=== PATIENT | male | born 1950 | race Caucasian/White ===

== ENCOUNTER → 2023-04-05 11:23 | Outpatient (REF) | payer MEDICARE, OTHER, SELFPAY ==
[2023-04-05 12:11] LABS: % Basophils 0.7 % (0-2); % Eosinophils 3.8 % (0-6); % Immature Granulocytes 0.1 % (0-0.5); % Monocytes 7.5 % (1.7-9.3); % Neutrophils 56.9 % (42.2-75.2); Absolute Basophils 0.1 10^3/uL (0-0.2); Absolute Eosinophils 0.3 10^3/uL (0-0.7); Absolute Lymphocytes 2.2 10^3/uL (1.2-3.4); Absolute Monocytes 0.5 10^3/uL (0.1-0.6); Hematocrit 39.2 % (39.0-52.0); Hemoglobin 13.6 g/dL (13.0-18.0); Mean Corp Hgb Conc. 34.7 g/dL (33.0-37.0); Mean Corpuscular Hgb 32.9 pg (27.0-31.0); Mean Corpuscular Volume 94.7 fL (80.0-94.0); Mean Platelet Volume 10.1 fL (7.4-10.4); Nucleated Red Blood Cells % 0 % (-); Platelet Count 128 10^3/uL (130-400); Red Blood Cell Count 4.14 10^6/uL (4.70-6.10); Red Cell Dist. Width 13.9 % (11.5-14.5); White Blood Cell Count 7.1 10^3/uL (4.8-10.8)
[2023-04-05 12:20] LABS: INR 1.06; PT 13.6 Sec (11.4-14.6)
[2023-04-05 13:05] LABS: Blood Urea Nitrogen 23 mg/dl (9-20); Calcium 9.1 mg/dl (8.4-10.2); Carbon Dioxide 28 mmol/L (22-30); Chloride 101 mmol/L (98-107); Glucose 112 mg/dl (70-99); Potassium 4.3 mmol/L (3.5-5.1); Sodium 137 mmol/L (135-145); eGFR > 60.00
== END ==
LOC: REG 11:23
PROVIDERS: ATTENDING PHYSICIAN Surgery; FAMILY PHYSICIAN Internal Medicine
DX: I70.212 Atherosclerosis of native arteries of extremities with intermittent claudication, left leg (principal)
CPT/HCPCS: 36415; 80048; 85025; 85610

== ENCOUNTER → 2023-05-02 06:29 | Day surgery (SDC) | payer MEDICARE, OTHER, SELFPAY | LOC: GI 06:29 | PROVIDERS: ATTENDING PHYSICIAN Specialist | DX: K52.9 Noninfective gastroenteritis and colitis, unspecified (principal); K64.8 Other hemorrhoids; K63.89 Other specified diseases of intestine; K52.831 Collagenous colitis | CPT/HCPCS: 45380; 88305; 88313 ==

== ENCOUNTER 2023-05-10 11:30 | Emergency (ER) | payer MEDICARE, OTHER, SELFPAY ==
[2023-05-10 11:35] VITALS: BP 133/68
--- NOTE | 2023-05-10 12:22 | ED.GENMED ---
History of Present Illness
General
Chief Complaint: DVT/Possible Blood Clot
Time Seen by Provider: 05/10/23 11:41
Travel History
Have you had any contact with someone who has COVID-19?: No
Do you have any symptoms of coronavirus? Fever > 100 degrees, chills, cough, shortness of breath, sore throat, loss of taste or smell, muscle aches, or headache?: No
History of Present Illness
History of Present Illness:
72-year-old male with history of prior PE provoked by knee surgery, coronary artery disease, and peripheral arterial disease presents to the emergency department for evaluation of pain to the right popliteal region beginning yesterday. States it is
similar to symptoms that he had from prior DVT. He denies any claudication type symptoms. Denies any numbness or paresthesias in the right lower extremity. Pain is minimal at rest currently. Does note that he has right knee arthritis and is
following with orthopedics for a potential future knee replacement.
Past History
Past History
ED Past Medical History: CAD, HTN and Other (DVT, PE)
ED Past Surgical History: Orthopedic (prior cervical fusion)
Social History
Tobacco: Non-smoker
Alcohol: Occasional
Personal:
Living: with family
Employment: Other
Family History
Family History: Negative Diabetes, Hypertension or CAD
Review of Systems
Review of Systems
Allergies reviewed?: Yes
All Other Systems: ROS reviewed and negative except as documented in HPI and ROS
Phy Exam
Physical Exam
Physical Exam:
GEN: Well appearing, NAD, WDWN
HEENT: Oral mucosa moist, no scleral icterus
Cardiac: Regular rate and rhythm, no murmurs
Lung: No respiratory distress, no tachypnea
MSK: No gross deformity or injuries. 2+ dorsalis pedis pulse, 1+ pulses throughout. On the right, normal sensation to all digits
Skin: Good color, no pallor or jaundice, no rashes
Neuro: AO x3, moves all extremities freely
Psych: Calm, cooperative
Course
Orders/Labs/Results
Orders:
Orders
05/10/23 11:53
Venous Doppler Lwr Ext Rt [US Periph Venous LOWER Ext RT] Urgent
Comment:
Reason For Exam: R leg swelling/pain
Vital Signs
Initial and Last Documented VS:
Initial Vital Signs
Temp Pulse Resp BP Pulse Ox
97.5 F 56 16 133/68 99
05/10/23 11:35 05/10/23 11:35 05/10/23 11:35 05/10/23 11:35 05/10/23 11:35
Last Documented Vital Signs
Temp Pulse Resp BP Pulse Ox
97.5 F 70 16 136/75 98
05/10/23 11:35 05/10/23 14:55 05/10/23 14:55 05/10/23 14:55 05/10/23 14:55
MDM/Problems Addressed
MDM/Problems Addressed:
Patient clinical signs of arterial disease/arterial insufficiency at this time as he has no claudication and has intact peripheral pulses. DVT ultrasound shows no evidence for clot. This pain is likely due to his right knee arthritis
*Critical Care Note
Total Time (30-74mins, 75-104mins- exclusive of procedures): Not Applicable
ED Attending Note
-
Portions of this chart may have been created with voice recognition software.� Occasional wrong word or��sound alike� substitutions may have occurred due to the inherent limitations of voice recognition software.
Discharge Plan
Departure
Patient Disposition: Home (Routine Discharge)
Date of Disposition: 05/10/23
Time of Disposition: 14:45
Patient with high blood pressure during this ER visit?: No
Discharge Problem:
Posterior right knee pain
Instructions: Knee Pain ED
Prescriptions:
No Action
atorvastatin 80 MG tablet
80 mg PO HS
atenolol 50 MG tablet
50 mg PO DAILY
tramadol 50 MG tablet
50 mg PO Q4H PRN (Reason: pain)
Centrum Silver Men 1 EACH tablet
1 ea PO DAILY
aspirin 81 MG tablet,delayed release (DR/EC)
81 mg PO Q48H
coenzyme Q10 [Co Q-10] 100 MG capsule
100 mg PO DAILY
docosahexaenoic acid-epa 1 CAP capsule
1 cap PO DAILY
isosorbide mononitrate 30 MG tablet extended release 24 hr
30 mg PO HS
Referrals:
Larry Almonte MD [Family Provider] -
Activity Restrictions/Additional Instructions:
You have good pulses to the R foot and no signs of arterial blood flow problems
Your DVT study looks normal
Interventions
Interventions:
*Risk Screen - Suicide Last Done: 05/10/23 14:16
*General Assessment Last Done: 05/10/23 11:35
*Neglect/Abuse Screening Last Done: 05/10/23 14:16
ED- Fall Risk Assessment Last Done: 05/10/23 14:55
*ED COVID-19 Vaccine History Last Done: 05/10/23 11:35
*Nursing Disposition Last Done: 05/10/23 14:55
ED- Cardiac Assessment Last Done: 05/10/23 14:09
ED- Pulmonary Assessment Last Done: 05/10/23 14:09
ED-Peripheral Vascular Assessment Last Done: 05/10/23 14:09
ED-Skin Assessment Last Done: 05/10/23 14:09
Discharge Date and Time
Discharge Date/Time: 05/10/23 14:56
[2023-05-10 14:55] VITALS: BP 136/75
== END 2023-05-10 14:56 | disposition home or self-care (01) ==
LOC: EMR 11:30
PROVIDERS: EMERGENCY PHYSICIAN Emergency Medicine; FAMILY PHYSICIAN Internal Medicine
DX: M25.561 Pain in right knee (principal); M17.11 Unilateral primary osteoarthritis, right knee
CPT/HCPCS: 99284; 93971

== ENCOUNTER → 2023-07-19 10:00 | Outpatient (REF) | payer MEDICARE, OTHER, SELFPAY ==
[2023-07-19 11:54] LABS: ALT (SGPT) 35 U/L (0-50); AST (SGOT) 36 U/L (17-59); Albumin 4.2 g/dl (3.5-5.0); Alkaline Phosphatase 83 U/L (38-126); Direct Bilirubin 0.4 mg/dl (0.0-0.4); HDL Cholesterol 61 mg/dl; LDL Cholesterol, Calculated 69 mg/dl; Total Cholesterol 147 mg/dl (50-199); Total Protein 6.9 g/dl (6.3-8.2); Triglyceride 86 mg/dl (10-149); Very Low Density Lipoprotein 17 mg/dl (0-30)
== END ==
LOC: REG 10:00
PROVIDERS: ATTENDING PHYSICIAN Internal Medicine
DX: E78.5 Hyperlipidemia, unspecified (principal); E66.9 Obesity, unspecified
CPT/HCPCS: 36415; 80061; 80076

== ENCOUNTER → 2023-12-09 11:02 | Outpatient (REF) | payer MEDICARE, OTHER, SELFPAY | LOC: REG 11:02 | PROVIDERS: ATTENDING PHYSICIAN Specialist; FAMILY PHYSICIAN Internal Medicine | DX: R19.7 Diarrhea, unspecified (principal) | CPT/HCPCS: 87045; 87046; 87324; 87427; 87449 ==

== ENCOUNTER → 2023-12-17 08:56 | Outpatient (REF) | payer MEDICARE, OTHER, SELFPAY ==
[2023-12-17 10:44] LABS: % Basophils 0.6 % (0-2); % Eosinophils 2.2 % (0-6); % Immature Granulocytes 0.3 % (0-0.5); % Lymphocytes 31.1 % (20.5-51.1); % Monocytes 7.8 % (1.7-9.3); Absolute Eosinophils 0.1 10^3/uL (0-0.7); Absolute Monocytes 0.5 10^3/uL (0.1-0.6); Absolute Neutrophils 3.7 10^3/uL (1.4-6.5); Hematocrit 37.1 % (39.0-52.0); Hemoglobin 12.6 g/dL (13.0-18.0); Mean Corpuscular Volume 94.2 fL (80.0-94.0); Mean Platelet Volume 10.4 fL (7.4-10.4); Nucleated Red Blood Cells % 0 % (-); Platelet Count 120 10^3/uL (130-400); Red Blood Cell Count 3.94 10^6/uL (4.70-6.10); Red Cell Dist. Width 14.9 % (11.5-14.5); White Blood Cell Count 6.3 10^3/uL (4.8-10.8)
[2023-12-17 10:53] LABS: ALT (SGPT) 49 U/L (0-50); AST (SGOT) 41 U/L (17-59); Albumin 4.1 g/dl (3.5-5.0); Alkaline Phosphatase 60 U/L (38-126); Blood Urea Nitrogen 28 mg/dl (9-20); Calcium 9.3 mg/dl (8.4-10.2); Carbon Dioxide 30 mmol/L (22-30); Chloride 100 mmol/L (98-107); Glucose 85 mg/dl (70-99); HDL Cholesterol 53 mg/dl; LDL Cholesterol, Calculated 72 mg/dl; Potassium 4.6 mmol/L (3.5-5.1); Sodium 141 mmol/L (135-145); Total Bilirubin 0.8 mg/dl (0.2-1.3); Total Cholesterol 139 mg/dl (50-199); Total Protein 6.5 g/dl (6.3-8.2); Triglyceride 70 mg/dl (10-149); Very Low Density Lipoprotein 14 mg/dl (0-30); eGFR > 60.00
[2023-12-17 11:18] LABS: PSA, Total - Screen 0.95 ng/ml (0.0-4.0)
[2023-12-18 14:45] LABS: Iron 84 ug/dl (49-181)
[2023-12-18 14:54] LABS: Percent Saturation 28 % (20-50); Total Iron Binding Capacity 297 ug/dl (261-462)
== END ==
LOC: REG 08:56
PROVIDERS: ATTENDING PHYSICIAN Internal Medicine
DX: E78.5 Hyperlipidemia, unspecified (principal); Z00.01 Encounter for general adult medical examination with abnormal findings; Z12.5 Encounter for screening for malignant neoplasm of prostate; D50.9 Iron deficiency anemia, unspecified
CPT/HCPCS: 36415; 80053; 80061; 83540; 83550; 85025; G0103

== ENCOUNTER → 2024-02-23 13:57 | Outpatient (REF) | payer MEDICARE, OTHER, SELFPAY | LOC: RAD 13:57 | PROVIDERS: ATTENDING PHYSICIAN Internal Medicine | DX: I73.9 Peripheral vascular disease, unspecified (principal) | CPT/HCPCS: 93922; 93925 ==

== ENCOUNTER → 2024-06-12 09:33 | Outpatient (REF) | payer MEDICARE, OTHER, SELFPAY ==
[2024-06-12 11:19] LABS: % Basophils 0.6 % (0-2); % Immature Granulocytes 0.2 % (0-0.5); % Lymphocytes 38.7 % (20.5-51.1); % Monocytes 7.8 % (1.7-9.3); % Neutrophils 49.7 % (42.2-75.2); Absolute Eosinophils 0.2 10^3/uL (0-0.7); Absolute Lymphocytes 2.4 10^3/uL (1.2-3.4); Absolute Monocytes 0.5 10^3/uL (0.1-0.6); Absolute Neutrophils 3.1 10^3/uL (1.4-6.5); Hematocrit 38.7 % (39.0-52.0); Hemoglobin 13.4 g/dL (13.0-18.0); Mean Corp Hgb Conc. 34.6 g/dL (33.0-37.0); Mean Corpuscular Hgb 33.5 pg (27.0-31.0); Mean Corpuscular Volume 96.8 fL (80.0-94.0); Mean Platelet Volume 10.9 fL (7.4-10.4); Nucleated Red Blood Cells % 0 % (-); Platelet Count 108 10^3/uL (130-400); Red Cell Dist. Width 14.6 % (11.5-14.5); White Blood Cell Count 6.3 10^3/uL (4.8-10.8)
[2024-06-12 11:55] LABS: ALT (SGPT) 52 U/L (0-50); AST (SGOT) 41 U/L (17-59); Albumin 4.4 g/dl (3.5-5.0); Alkaline Phosphatase 64 U/L (38-126); Direct Bilirubin 0.4 mg/dl (0.0-0.4); HDL Cholesterol 54 mg/dl; Iron 122 ug/dl (49-181); LDL Cholesterol, Calculated 56 mg/dl; Total Bilirubin 1.2 mg/dl (0.2-1.3); Total Cholesterol 131 mg/dl (50-199); Total Protein 6.7 g/dl (6.3-8.2); Triglyceride 106 mg/dl (10-149); Very Low Density Lipoprotein 21 mg/dl (0-30)
[2024-06-12 12:05] LABS: Percent Saturation 42 % (20-50); Total Iron Binding Capacity 287 ug/dl (261-462)
== END ==
LOC: REG 09:33
PROVIDERS: ATTENDING PHYSICIAN Internal Medicine
DX: D50.9 Iron deficiency anemia, unspecified (principal); D64.9 Anemia, unspecified; E78.5 Hyperlipidemia, unspecified; Z68.30 Body mass index [BMI] 30.0-30.9, adult
CPT/HCPCS: 36415; 80061; 80076; 83540; 83550; 85025

== ENCOUNTER → 2024-09-01 14:20 | Outpatient (REF) | payer MEDICARE, OTHER, SELFPAY | LOC: DHVS 14:20 | PROVIDERS: ATTENDING PHYSICIAN Surgery Vascular Surgery; FAMILY PHYSICIAN Internal Medicine | DX: I73.9 Peripheral vascular disease, unspecified (principal); I25.10 Atherosclerotic heart disease of native coronary artery without angina pectoris | CPT/HCPCS: 93880; 93922; 93925 ==

== ENCOUNTER → 2024-09-13 14:01 | Outpatient (REF) | payer MEDICARE, OTHER, SELFPAY ==
[2024-09-13 14:51] LABS: Blood Urea Nitrogen 26 mg/dl (9-20); Calcium 9.4 mg/dl (8.4-10.2); Carbon Dioxide 30 mmol/L (22-30); Chloride 103 mmol/L (98-107); Glucose 93 mg/dl (70-99); Potassium 4.8 mmol/L (3.5-5.1); Sodium 137 mmol/L (135-145); eGFR > 60.00
== END ==
LOC: REG 14:01
PROVIDERS: ATTENDING PHYSICIAN Surgery Vascular Surgery; FAMILY PHYSICIAN Internal Medicine
DX: I65.21 Occlusion and stenosis of right carotid artery (principal)
CPT/HCPCS: 36415; 80048

== ENCOUNTER → 2024-09-14 14:02 | Outpatient (REF) | payer MEDICARE, OTHER, SELFPAY | LOC: RAD 14:02 | PROVIDERS: ATTENDING PHYSICIAN Physician Assistant | DX: I65.21 Occlusion and stenosis of right carotid artery (principal) | CPT/HCPCS: 70496; 70498; Q9967 ==

== ENCOUNTER 2024-09-28 08:23 | Inpatient (IN) | payer MEDICARE, OTHER, SELFPAY ==
[2024-09-24 09:32] VITALS: BMI 29.1
[2024-09-24 10:16] LABS: Hematocrit 39.3 % (39.0-52.0); Hemoglobin 13.5 g/dL (13.0-18.0); Mean Corp Hgb Conc. 34.4 g/dL (33.0-37.0); Mean Corpuscular Volume 99.2 fL (80.0-94.0); Nucleated Red Blood Cells % 0 % (-); Platelet Count 106 10^3/uL (130-400); Red Cell Dist. Width 14.4 % (11.5-14.5)
[2024-09-24 10:30] LABS: INR 0.99; PT 13.4 Sec (11.4-14.6)
[2024-09-24 10:32] LABS: APTT 26.4 Sec (23.4-35.0)
[2024-09-24 10:48] LABS: Blood Urea Nitrogen 24 mg/dl (9-20); Calcium 9.0 mg/dl (8.4-10.2); Carbon Dioxide 30 mmol/L (22-30); Chloride 104 mmol/L (98-107); Estimated Creatinine Clearance 57 ml/min; Glucose 85 mg/dl (70-99); Potassium 4.4 mmol/L (3.5-5.1); Sodium 141 mmol/L (135-145); eGFR > 60.00
[2024-09-28] VITALS (10 sets, daily range): BP systolic 100–161; BP diastolic 57–86
[2024-09-28] MEDS: BACTROBAN NASAL 1 GRAM NASAL (08:51)
[2024-09-28] MEDS: PERIDEX 0.12% ORAL RINSE 15 ML PO (08:51)
[2024-09-28] MEDS: NSS 500 IV (08:52)
--- NOTE | 2024-09-28 10:17 | W.SUR.PREOP ---
Pre-Operative Surgical Note
-
I have examined this patient prior to the performance of the scheduled procedure.
The patient's condition is unchanged from the time of the current History and
Physical and the patient is able to undergo the scheduled procedure.
[2024-09-28 12:30] LABS: ACT-LR - POC 298 Seconds (116-155)
[2024-09-28 13:09] LABS: ACT-LR - POC 305 Seconds (116-155)
--- NOTE | 2024-09-28 13:24 | OR.RPT ---
Operative Report
Operative Report
Date of Operation: 09/28/2024
Pre Op Diagnosis: High-grade stenosis of right carotid artery, asymptomatic
Post Op Diagnosis: High-grade stenosis of right carotid artery, asymptomatic
Procedure: RIGHT carotid endarterectomy with patch angioplasty using bovine pericardium
Surgeon: Jus Gilliland III, MD
Manager Product Management: Maurice Simon MD PGY2
Anesthesia: General
Complications: None
History and Indications for Procedure: 74-year-old male with high-grade stenosis of the right carotid artery.
Procedure in Detail: Eitan Flores was correctly identified and placed supine on the operating table. After adequate induction of anesthesia the right neck was positioned, prepped and draped in the usual sterile fashion. Preoperative antibiotics
were administered. A timeout procedure was performed with the nursing and anesthesia staff confirming the patients identity as well as the nature and laterality of the procedure.
The carotid bifurcation was marked with ultrasound at the beginning of the case. The incision was planned accordingly. An incision was made along the anterior border of the right sternocleidomastoid muscle. Electrocautery was used to divide the
subcutaneous tissue and platysma. The carotid sheath was entered with sharp dissection. The internal jugular vein was retracted laterally. The vagus nerve was identified and protected throughout the case. The common carotid artery was identified at
the base of this incision and carefully encircled with a vessel loop. The patient was systemically heparinized. The dissection was continued distally towards the carotid bifurcation. The facial vein was skeletonized, ligated and divided between ties
and clips. The proximal external carotid artery was encircled with a vessel loop. The distal internal carotid artery was encircled with a vessel loop at a soft spot on the artery beyond the plaque. The hypoglossal nerve was identified and protected.
The internal vessel loop was secured followed by the common and external. An arteriotomy was made on the distal common carotid artery with an 11-blade. This was extended proximally and distally with Ol[place] scissors. The arteriotomy was extended
distally through the plaque to an area of normal appearing internal carotid artery. The distal vessel loop was replaced with a short tip hockey-stick type vascular clamp. An endarterectomy was performed with a [place] elevator in the standard
fashion. The proximal extent of the plaque was transected with scissors. The distal end of the plaque in the internal carotid artery was feathered. No distal intimal flap was identified. The plaque extending into the external carotid artery was
everted. Once the plaque was fully removed the endarterectomy plane was irrigated with heparinized saline and any loose fronds of tissue were removed. A pre-cut piece of bovine pericardium was sewn in place using a running 6-0 Prolene suture. Prior
to the completion of the patch the common carotid was allowed to forward bleed and the external was allowed to back bleed. The area under the patch was irrigated with heparinized saline to remove any potential thrombus or debris. The anastomosis was
completed.
The external vessel loop was released first, followed by the common and then the internal. There was an excellent pulse in the distal internal carotid artery. An excellent quality Doppler signal in the distal internal carotid artery was also
confirmed. The patch suture line was closely inspected for hemostasis and was achieved. Protamine was administered. Hemostasis was achieved in the wound bed. The wound was irrigated with saline solution.
The wound was then closed in layers. Sterile skin glue was applied. The patient awoke from anesthesia with no immediate neuro deficits and was taken to the PACU in stable condition.
Attestation: I was present and responsible for the entire procedure
Signed:
Jus Gilliland III, MD
Vascular Surgery
[facility]
[2024-09-28] MEDS: MORPHINE SULFATE 2 MG IV ×2 (14:04→14:22)
--- NOTE | 2024-09-28 15:15 | PTCARENOTE ---
Pt rec'd into ICU 3368 from PACU at approx 15:15, AOx3 pleasant and cooperative, right neck surgical site assessed, neurovascular checks WNL, see flowsheet. Right radial Stanton intact, leveled and zeroed, correlating with non invasive cuff. 2L nasal
cannula applied, sat 94%. Pt with known hx of sleep apnea, not technically diagnosed and pt refuses any treatment/intervention due to claustrophobia r/t mask per . Pt oriented to room and plan of care, updated as well. Pt ordering dinner,
using ice pack to right neck per order, medicated with PRN Tramadol 100 mg for 7/10 pain as ordered with good result. Safe environment maintained, care ongoing. Call spain in hand.
[2024-09-28 15:20] LABS: Glucose - Point of Care 74 mg/dl (70-99)
--- NOTE | 2024-09-28 15:36 | CON.INTV ---
Consultation
Consultation Request
Date/Time Consultation Requested: 09/28/2024
Date/Time Consultation Performed: 09/28/2024
Requesting Provider: Dr. Gilliland
Performing Provider: Dr. Cuauhtemoc Maza
Reason for Consultation: Status post right carotid endarterectomy
Medical History
-
Chief Complaint: Status post carotid endarterectomy
History of Present Illness:
74-year-old man with past medical history significant for hyperlipidemia, GERD, prior peptic ulcer disease, hypogonadism, DVT in 2012, pulmonary embolism 2012, cervical spinal stenosis, coronary artery disease who has history of carotic artery
stenosis. Admitted electively for revascularization.
Underwent right carotid endarterectomy by Dr. Gilliland on 09/28/2024. Transferred to the critical care unit for postoperative care.
Currently denies any headache or blurry vision.
His incision is intact without hematoma.
No stridor on exam.
Past Medical History
Past Medical History: Other (See assessment and plan)
Social History
Tobacco: Non-smoker
Alcohol: None
Drug: None
Family History
Family History: Reviewed & Not Pertinent
Allergies / Home Medications
Allergies
Allergy/AdvReac Type Severity Reaction Status Date / Time
hydromorphone (From Dilaudid) Allergy Unknown Verified 09/28/24 08:31
Home Medications
�Medication �Instructions �Recorded �Confirmed �Last Taken �Type
atenolol 50 mg tablet 50 mg PO DAILY 01/15/13 09/28/24 09/27/24 08:00 History
atorvastatin 80 mg tablet 80 mg PO HS 01/15/13 09/28/24 09/27/24 17:00 History
isosorbide mononitrate 30 mg 30 mg PO HS 02/21/16 09/28/24 09/27/24 08:00 History
tablet,extended release 24 hr
mbqurwjj-qr-ktphl 300 mcg-K 60 1 ea PO DAILY 04/15/17 09/28/24 09/27/24 08:00 History
mcg-lycop 600 mcg-lutein 300 mcg
tablet (Centrum Silver Men)
tramadol 50 mg tablet 50 mg PO Q4H PRN pain 04/15/17 09/28/24 09/27/24 08:00 History
aspirin 81 mg tablet,delayed 81 mg PO DAILY 12/05/18 09/28/24 09/28/24 07:30 History
release
coenzyme Q10 100 mg capsule (Co 100 mg PO DAILY 12/05/18 09/28/24 09/27/24 08:00 History
Q-10)
diclofenac sodium 75 mg 75 mg PO BID 09/23/24 09/28/24 09/27/24 08:00 History
tablet,delayed release
Review of Systems
-
History Source: Patient
All other systems: Negative unless noted
Vitals / Labs / Diagnostic Testing
Vital Signs
Temp Pulse Resp BP Pulse Ox
97.7 F 48 15 109/59 96
09/28/24 14:50 09/28/24 14:45 09/28/24 14:45 09/28/24 14:45 09/28/24 14:50
Lab Data
09/24/24 09:43
09/24/24 09:43
Diagnostic Testing:
Physical Exam
-
HEENT: Normocephalic and Other (Cervical incision intact without hematoma. No stridor on exam)
Cardiovascular: S1/S2
Respiratory: Non-Labored Respirations
GI: Soft and Non Distended
Neurology: Awake and Oriented
Skin: Warm
General: Comfortable
Assessment
-
74-year-old man with past medical history noted, electively admitted for carotic artery stenosis surgery. Underwent endarterectomy on 09/28/[address] Gilliland. Subsequently transferred to the critical care unit for postoperative care
Status post RIGHT carotid endarterectomy with patch angioplasty using bovine pericardium-Dr. Gilliland 09/28/2024
High-grade stenosis of right carotid artery, asymptomatic
Conditions present prior admission:
Assessment and plan:
Postoperative surgical intensive care unit monitoring
Supplemental oxygen as needed
Incentive spirometry
Aspiration precautions
Chest x-ray 09/28/2024: Reviewed, showed clear lungs. Bilateral shoulder replacements.
Incision is intact without hematoma
No stridor on exam
Neuro and vascular checks per protocol
Vascular surgery following-correspondence and operative notes reviewed
Monitor blood pressure
Arterial line in place
Cardene drip if needed
Restart outpatient medication
Follow hemoglobin
Follow blood sugars
Insulin supplementation as needed
DVT prophylaxis
Early nutrition
Early mobilization
-
ICU monitoring next 24 hours.
[2024-09-28] MEDS: ULTRAM 100 MG PO ×2 (15:52→23:20)
--- NOTE | 2024-09-28 15:52 | W.IMMPOSTOP ---
Surgical Immed Post Op Note
-
Primary Surgeon: Talat
Assisting Surgeon: Aurora
Pre-op Diagnosis: Carotid stenosis
Post-op Diagnosis: Carotid stenosis
Procedure Performed: right CEA
Anesthesia Type: General
Specimen / Cultures: None
Estimated Blood Loss: 45 cc
Complications: None
Operative Findings: Plaque at carotid bifurcation extending into ICA. Patch reconstruction following endarterectomy.
[2024-09-28] MEDS: NSS 1000 IV (15:53)
--- NOTE | 2024-09-28 19:25 | PTCARENOTE ---
Pt with only 25 mls urine output since arriving to ICU, ICU NICOLLE notified, plan discussed...pt bladder scanned with result of 920 mls. Pt with no complaints of discomfort. Pt encouraged to attempt to void again, was able to urinate another 250 mls.
Pt states he feels like he could fully empty bladder if he stood to void. 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 Handoff to night RN completed.
[2024-09-28] MEDS: IMDUR (EXTENDED RELEASE) 30 MG PO (21:34)
[2024-09-28] MEDS: HEPARIN 5000 UNITS SC (21:34)
[2024-09-28] MEDS: LIPITOR 80 MG PO (21:34)
--- NOTE | 2024-09-28 22:00 | PTCARENOTE ---
Pt Aox3, [place], SB w/ 1st degree on monitor. Sats 88% on 2L, Oxygen increased to 4L, Right neck incision with surgical glue. CDI. Tracey in right wrist. NS infusing 80ml/hr. Pt on bedrest, unable to void, voided 150mls, post void residual bladder
scanned for 650mls, Straight cathed 700ml out.
[2024-09-29] VITALS (7 sets, daily range): BP systolic 116–141; BP diastolic 60–67; BMI 29.6
[2024-09-29] MEDS: NEO-SYNEPHRINE 250 IV (01:10)
--- NOTE | 2024-09-29 01:27 | PTCARENOTE ---
Pt Aox3, Sinus tonja w/ 1st degree on monitor. c/o pain in right neck incision PRN tramadol given. Site is clean, dry and intact, closed with surgical glue. Localize swelling and ecchymotic. Pt required Phenylephrine for BP 90/40, per order to keep
SBP>100.
[2024-09-29] MEDS: NSS 1000 IV (01:56)
[2024-09-29 04:14] LABS: Hematocrit 31.5 % (39.0-52.0); Hemoglobin 10.9 g/dL (13.0-18.0); Mean Corp Hgb Conc. 34.6 g/dL (33.0-37.0); Mean Corpuscular Volume 98.1 fL (80.0-94.0); Platelet Count 102 10^3/uL (130-400); Red Cell Dist. Width 14.3 % (11.5-14.5)
[2024-09-29 04:19] LABS: INR 1.11; PT 14.6 Sec (11.4-14.6)
[2024-09-29 04:20] LABS: APTT 26.1 Sec (23.4-35.0)
[2024-09-29 04:36] LABS: Blood Urea Nitrogen 24 mg/dl (9-20); Calcium 8.6 mg/dl (8.4-10.2); Carbon Dioxide 22 mmol/L (22-30); Chloride 108 mmol/L (98-107); Estimated Creatinine Clearance 78 ml/min; Glucose 125 mg/dl (70-99); Potassium 4.5 mmol/L (3.5-5.1); Sodium 136 mmol/L (135-145); eGFR > 60.00
[2024-09-29] MEDS: TUMS EX (EXTRA STRENGTH) CHEWABLE TABLET 600 MG PO (06:00)
--- NOTE | 2024-09-29 06:16 | PTCARENOTE ---
Raza gtt stopped to meet BP parameters. Oxygen decreased to 3L. CHG completed. Pt cc/o indigestion, PRN TUMs given.
[2024-09-29] MEDS: TENORMIN PO (07:38)
[2024-09-29 07:45] LABS: Glucose - Point of Care 102 mg/dl (70-99)
[2024-09-29] MEDS: ASPIR LOW (ENTERIC COATED) 81 MG PO (07:45)
[2024-09-29] MEDS: ULTRAM 50 MG PO (07:45)
[2024-09-29] MEDS: HEPARIN 5000 UNITS SC (07:46)
[2024-09-29] MEDS: THERAGRAN 1 TABLET PO (07:46)
--- NOTE | 2024-09-29 08:00 | PTCARENOTE ---
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 Patient is AAOx4, neuro checks remain unchanged. Patient is on 3L nasal cannula, Is sinus tonja in the 40s on monitor. right radial A-line transduced and zeroed to atmospheric pressure, correlating with left
upper arm pressure. Patient is ordered cholesterol lowering diet. Has urinated overnight had retention x2. Will monitor next void. Patient's right neck incision approximated and ecchymotic. will discontinue adamaris and get patient OOB to chair.
hopeful discharge later this afternoon.
--- NOTE | 2024-09-29 08:20 | W.PN.VS ---
Today's Communication / Plan
-
Plan reviewed with Dr. Yair Lyn.
Assessment/Plan
-
Assessment: 74 year old male POD#1 Right CEA
Plan:
Discontinue IV fluids
Discontinue arterial line
OOB to chair with progression to ambulation as tolerated
Continue to monitor for urinary retention
Possible discharge later today pending patient progression and urinary status
Subjective Data
-
Date of Service: September 29, 2024
Patient seen and examined at bedside, offers no complaints. Denies nausea, vomiting, fever, and chills. Tolerating PO diet. He did require x2 straight catheterization over night, he indicates that he often has urinary retention after anesthesia.
Objective Data
-
Vital Signs
Temp Pulse Resp BP Pulse Ox
98.2 F 46 13 111/61 99
09/29/24 07:38 09/29/24 07:38 09/29/24 07:00 09/28/24 15:15 09/29/24 07:51
Intake and Output
09/28/24 09/29/24 09/30/24
06:59 06:59 06:59
Intake Total 1218 / 1298 160 / 160
Output Total 2325 / 2325
Balance -1107 / -1027 160 / 160
Intake:
Oral fluids 240 / 240
IV fluids (Total) 978 / 1058 160 / 160
Raza 18 / 18
Nss 1,000 ml @ 80 mls/hr IV . 960 / 1040 160 / 160
[id number] [place] Rx#:[id number]
Output:
Urine, Voided 825 / 825
Straight cath output 1500 / 1500
Lab Results
09/29/24 03:48
09/29/24 03:48
Calcium 8.6 mg/dl (8.4-10.2) 09/29/24 03:48
Physical Exam
-
No apparent distress, resting in bed comfortably
Face symmetrical, right neck incision clean, dry, and intact, no evidence of hematoma, soft
No tachycardia
No dyspnea on room air
ABD flat
Moves BL UE and LE to command and spontaneously, equal strength
--- NOTE | 2024-09-29 09:29 | PTCARENOTE ---
Discontinued A-line and got patient OOB to chair.
--- NOTE | 2024-09-29 09:53 | PTCARENOTE ---
Rounds by vascular team, Vascular team asked to administer atenolol.
[2024-09-29] MEDS: TENORMIN 50 MG PO (10:05)
--- NOTE | 2024-09-29 11:12 | CM ---
Initial assessment completed with patient who lives with his in a 2 story home plus basement with B/B on 2nd and 1/2 bath on . 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 In the home is a RW, Standard walker, crutches and
SPC's. Patient does not use any AD. No in-home services. Does have a HC-POA. Was in the [employer]. PCP is Dr. Chele Almonte and Pharmacy is [facility] in [place] on in [address]. Discharge POC: Home with no needs.
--- NOTE | 2024-09-29 11:15 | W.PN.INTV ---
Today's Communication / Plan
Recommendations
Continue postoperative care
Increased activity as able
Monitor heart rate
Hopefully discharge later today if able to void
Assessment
-
74-year-old man with past medical history noted, electively admitted for carotic artery stenosis surgery. Underwent endarterectomy on 09/28/[address] Gilliland. Subsequently transferred to the critical care unit for postoperative care
Status post RIGHT carotid endarterectomy with patch angioplasty using bovine pericardium-Dr. Gilliland 09/28/2024
High-grade stenosis of right carotid artery, asymptomatic
Conditions present prior admission:
Assessment and plan:
Postoperative day 1-doing well.
Postoperative surgical intensive care unit monitoring
Supplemental oxygen as needed
Incentive spirometry
Aspiration precautions
Chest x-ray 09/28/2024: Reviewed, showed clear lungs. Bilateral shoulder replacements.
Incision is intact without hematoma
No stridor on exam
Neuro and vascular checks per protocol-neurologically intact.
Vascular surgery following-correspondence and operative notes reviewed
Hemodynamically stable
Arterial line will be discontinued Cardene drip if needed
Bradycardia noted
Patient on beta-bhupinder
Ambulate and check for symptoms
Postoperative urinary retention-had similar symptoms in the past
Increase activity as able
Straight cath if necessary.
DVT prophylaxis
Tolerating diet
-
Hopefully discharge later today.
Subjective Dataa
Subjective Data
Date of Service:
Date of Service: September 29, 2024
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
Subjective:
Patient offers no new complaints
He is having urinary voiding issues. Has similar issues after anesthesia in the past
Denies abdominal pain
Tolerating diet
Review of Systems
Cardiopulmonary: Dyspnea (Denies)
Neuro: Headache (Denies) and Dizziness (Denies)
Objective Data
Data Reviewed
Vital Signs / I&O / Oxygen:
Vital Signs
Temp Pulse Resp BP Pulse Ox
98.2 F 51 15 116/67 92
09/29/24 07:38 09/29/24 10:05 09/29/24 09:22 09/29/24 10:05 09/29/24 08:32
Intake and Output
09/28/24 09/29/24 09/30/24
06:59 06:59 06:59
Intake Total 1218 / 1298 240 / 240
Output Total 2325 / 2325
Balance -1107 / -1027 240 / 240
SaO2 92
Nasal Cannula flow liters per 2
minute
Physical Exam
General: Comfortable
HEENT: Normocephalic and Other (Incision intact without hematoma. No stridor on exam)
Cardiovascular: S1-S2
Respiratory: Clear and Non-Labored Respirations
GI: Soft and Non Distended
Neurology: Awake, Oriented and No Motor Deficits
Labs/Micro/Reports
Lab Data
09/29/24 03:48
09/29/24 03:48
Laboratory Results
09/29/24
03:48
PT 14.6
INR 1.11
APTT 26.1
--- NOTE | 2024-09-29 12:23 | PTCARENOTE ---
patient got dressed from waist up, ambulated unit twice, voided 250ml in urinal, awaiting d/c instructions. tolerated atenolol
--- NOTE | 2024-09-29 13:19 | CM ---
Patient has been medically cleared for discharge home with no additional skilled services. Patient has arranged for transport home. Admission IMM within 48 hour time frame of discharge.
--- NOTE | 2024-09-29 13:23 | W.DS.TRANS ---
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
-
Discharge Instructions:
Discharge Diagnosis/Procedures Carotid endarterectomy
Diet As tolerated
Activity No strenuous activity
Driving Restrictions Not until seen by your Dr
Bathing Restrictions OK to Shower
Instructions:
Stand-Alone Forms: Vascular Surg Discharge Instr
Changes to Home Medications: No
Discharge Medications:
DC Medications w/original date entered in [employer]
atenolol 50 mg tablet 50 mg PO DAILY Blood Pressure 01/15/13
atorvastatin 80 mg tablet 80 mg PO HS High Cholesterol 01/15/13
isosorbide mononitrate 30 mg tablet,extended release 24 hr 30 mg PO HS Heart Disease/Condition 02/21/16
euouklmx-mf-gdoxy 300 mcg-K 60 mcg-lycop 600 mcg-lutein 300 mcg tablet (Centrum Silver Men) 1 ea PO DAILY Supplement 04/15/17
tramadol 50 mg tablet 50 mg PO Q4H PRN pain 04/15/17
aspirin 81 mg tablet,delayed release 81 mg PO DAILY Blood Clot Prevention/Tx 12/05/18
coenzyme Q10 100 mg capsule (Co Q-10) 100 mg PO DAILY Supplement 12/05/18
diclofenac sodium 75 mg tablet,delayed release 75 mg PO BID Pain 09/23/24
Home Medication Changes
Pending Results: No
== END 2024-09-29 14:02 | disposition home or self-care (01) | DRG 39 ==
LOC: ICU 08:23
PROVIDERS: Nurse Practitioner; ADMITTING PHYSICIAN Surgery Vascular Surgery; CONSULT PHYSICIAN Internal Medicine Critical Care Medicine; FAMILY PHYSICIAN Internal Medicine
PROC: 03UK0KZ Supplement Right Internal Carotid Artery with Nonautologous Tissue Substitute, Open Approach (ICD-10-PCS; 2024-09-28)
PROC: 03CK0ZZ Extirpation of Matter from Right Internal Carotid Artery, Open Approach (ICD-10-PCS; 2024-09-28)
DX: I65.21 Occlusion and stenosis of right carotid artery (principal); I25.10 Atherosclerotic heart disease of native coronary artery without angina pectoris; I73.9 Peripheral vascular disease, unspecified; K21.9 Gastro-esophageal reflux disease without esophagitis; I10 Essential (primary) hypertension; E78.00 Pure hypercholesterolemia, unspecified; M48.02 Spinal stenosis, cervical region; Z79.82 Long term (current) use of aspirin; Z79.899 Other long term (current) drug therapy; Z86.718 Personal history of other venous thrombosis and embolism; Z96.611 Presence of right artificial shoulder joint; Z96.612 Presence of left artificial shoulder joint; Z86.711 Personal history of pulmonary embolism; Z88.5 Allergy status to narcotic agent; Z87.891 Personal history of nicotine dependence; Z95.820 Peripheral vascular angioplasty status with implants and grafts
CPT/HCPCS: 35301; 36415; 71045; 71046; 80048; 82962; 85025; 85027; 85610; 85730; 88304; 88311; 93005; 95938; 95941; 95955

== ENCOUNTER → 2024-11-01 13:50 | Outpatient (REF) | payer MEDICARE, OTHER, SELFPAY | LOC: RAD 13:50 | PROVIDERS: ATTENDING PHYSICIAN Registered Nurse; FAMILY PHYSICIAN Internal Medicine | DX: I65.21 Occlusion and stenosis of right carotid artery (principal) | CPT/HCPCS: 93880 ==

== ENCOUNTER → 2024-12-17 11:20 | Outpatient (REF) | payer MEDICARE, OTHER, SELFPAY ==
[2024-12-17 12:38] LABS: Hematocrit 40.6 % (39.0-52.0); Hemoglobin 13.6 g/dL (13.0-18.0); Mean Corp Hgb Conc. 33.5 g/dL (33.0-37.0); Mean Corpuscular Volume 100.5 fL (80.0-94.0); Nucleated Red Blood Cells % 0 % (-); Platelet Count 109 10^3/uL (130-400); Red Cell Dist. Width 13.7 % (11.5-14.5)
[2024-12-17 13:09] LABS: ALT (SGPT) 43 U/L (0-50); AST (SGOT) 39 U/L (17-59); Albumin 4.1 g/dl (3.5-5.0); Alkaline Phosphatase 78 U/L (38-126); Blood Urea Nitrogen 22 mg/dl (9-20); Calcium 9.1 mg/dl (8.4-10.2); Carbon Dioxide 28 mmol/L (22-30); Chloride 102 mmol/L (98-107); Glucose 79 mg/dl (70-99); HDL Cholesterol 53 mg/dl; LDL Cholesterol, Calculated 72 mg/dl; Potassium 4.5 mmol/L (3.5-5.1); Sodium 134 mmol/L (135-145); Total Protein 6.9 g/dl (6.3-8.2); Very Low Density Lipoprotein 15 mg/dl (0-30); eGFR > 60.00
== END ==
LOC: REG 11:20
PROVIDERS: ATTENDING PHYSICIAN Internal Medicine
DX: E78.5 Hyperlipidemia, unspecified (principal); E66.3 Overweight; D64.9 Anemia, unspecified; Z00.01 Encounter for general adult medical examination with abnormal findings; Z12.5 Encounter for screening for malignant neoplasm of prostate
CPT/HCPCS: 36415; 80053; 80061; 84153; 84154; 85025

== ENCOUNTER → 2024-12-28 09:32 | Outpatient (REF) | payer MEDICARE, OTHER, SELFPAY ==
[2024-12-28 11:40] LABS: ALT (SGPT) 50 U/L (0-50); AST (SGOT) 42 U/L (17-59); Albumin 4.4 g/dl (3.5-5.0); Alkaline Phosphatase 73 U/L (38-126); Blood Urea Nitrogen 20 mg/dl (9-20); Calcium 9.5 mg/dl (8.4-10.2); Carbon Dioxide 30 mmol/L (22-30); Chloride 101 mmol/L (98-107); Glucose 83 mg/dl (70-99); Potassium 4.6 mmol/L (3.5-5.1); Sodium 136 mmol/L (135-145); Total Protein 7.2 g/dl (6.3-8.2); Uric Acid 8.3 mg/dl (3.5-8.5); eGFR > 60.00
== END ==
LOC: REG 09:32
PROVIDERS: ATTENDING PHYSICIAN Nurse Practitioner Acute Care; FAMILY PHYSICIAN Internal Medicine
DX: R17 Unspecified jaundice (principal); E87.1 Hypo-osmolality and hyponatremia
CPT/HCPCS: 36415; 80053; 83930; 84300; 84550

== ENCOUNTER → 2025-01-05 14:01 | Outpatient (REF) | payer MEDICARE, OTHER, SELFPAY | LOC: RAD 14:01 | PROVIDERS: ATTENDING PHYSICIAN Nurse Practitioner Acute Care; FAMILY PHYSICIAN Internal Medicine | DX: Z00.00 Encounter for general adult medical examination without abnormal findings (principal); R42 Dizziness and giddiness; S00.93XA Contusion of unspecified part of head, initial encounter | CPT/HCPCS: 70496; 70498; Q9967 ==